=== PATIENT | female | born 1990 | race Caucasian/White ===

== ENCOUNTER 2022-07-11 10:07 | Day surgery (SDC) | payer MEDICAID ==
[2022-07-11] MEDS ORDERED: hydrALAZINE 20 MG/ML VIAL SLOW IVP PRN (10:33)
== END 2022-07-11 10:32 | disposition home or self-care (01) ==
LOC: CSHLD/OP 10:07
PROVIDERS: ATTEND Obstetrics & Gynecology
DX: O47.1 False labor at or after 37 completed weeks of gestation (principal); O99.513 Diseases of the respiratory system complicating pregnancy, third trimester; J45.909 Unspecified asthma, uncomplicated; Z3A.37 37 weeks gestation of pregnancy
CPT/HCPCS: 99282

== ENCOUNTER 2022-07-29 19:30 | Inpatient (IN) | payer MEDICAID, OTHER ==
[2022-07-30] MEDS ORDERED: Ibuprofen 800 MG TAB PO PRN (04:38)
[2022-07-30] MEDS ORDERED: HYDROcodone/Acetaminophen 5/325 mg Tablet PO PRN ×3 (04:38→22:10)
[2022-07-30] MEDS ORDERED: Misoprostol 200 MCG TAB PR PRN (04:38)
[2022-07-30] MEDS ORDERED: Carboprost 250 MCG/ML AMP IM PRN (04:38)
[2022-07-30] MEDS ORDERED: Ondansetron PF 4 MG/2 ML Vial IVP PRN ×2 (04:38→18:31)
[2022-07-30] MEDS ORDERED: Methylergonovine 0.2 MG/ML VIAL IM PRN (04:38)
[2022-07-30] MEDS ORDERED: Diphenoxylate HCl/Atropine Tablet PO PRN ×2 (04:38)
[2022-07-30] MEDS ORDERED: hydrALAZINE 20 MG/ML VIAL SLOW IVP PRN ×2 (04:38→22:10)
[2022-07-30] MEDS ORDERED: Lidocaine 1% (PF) 30 ML VIAL SC PRN (04:38)
[2022-07-30] MEDS ORDERED: Promethazine HCl 25 MG/ML VIAL IM PRN ×2 (04:38→18:31)
[2022-07-30] MEDS ORDERED: NS w/ Oxytocin 30 units 500 ML IV SCH ×3 (04:45→22:10)
[2022-07-30] MEDS: Misoprostol 100 MCG TAB VAG SCH ×4 (04:49→16:21)
[2022-07-30] MEDS: Lactated Ringer's 1,000 ML IV SCH (04:49)
[2022-07-30] MEDS ORDERED: Misoprostol 100 MCG TAB ONE (04:52)
[2022-07-30 05:09] LABS: Hemoglobin 12.9 g/dL (12.0-15.5); Mean Corpuscular HGB CONC 35.6 g/dL (32.0-36.0); Mean Corpuscular Hemoglobin 29.5 pg (27.0-33.0); Mean Corpuscular Volume 82.6 fl (81.6-98.3); Mean Platelet Volume 11.1 fl (7.4-10.4); Platelet Count 211 10x3/uL (150-450); RBC Distribution Width 13.4 % (11.5-14.5); Red Blood Cell (RBC) Count 4.38 10x6/uL (3.90-5.03); White Blood Cell (WBC) Count 9.3 10x3/uL (3.5-10.5)
[2022-07-30 05:17] LABS: HBSAg Index 0.19 S/CO (0-0.99); Hep B Surf Ag Non-Reactive S/CO (NonReactive); Syphilis Antibody Nonreactive (Nonreactive); Syphilis Antibody Index 0.03 S/CO (<1.00 Non-Reactive)
[2022-07-30 06:18] VITALS: BMI 57.6
[2022-07-30] MEDS ORDERED: Penicillin G Potassium 5 MILL.UNITS VIAL ONE (06:28)
[2022-07-30] MEDS ORDERED: Penicillin G Potassium 5 MILL.UNITS in Sodium Chloride 0.9% 100 ML IVPB SCH (07:15)
[2022-07-30] MEDS: Pen G 2.5 MILL.UNITS/50 ML BAG IVPB SCH ×3 (10:38→19:14)
[2022-07-30] MEDS ORDERED: Fentanyl 2 mcg/Bup 0.1% Cadd 100 ML ONE (16:30)
[2022-07-30] MEDS ORDERED: Moisturizing Cream (Eucerin) 113 GM JAR TOP PRN (18:31)
[2022-07-30] MEDS ORDERED: Acetaminophen 325 MG TAB PO PRN (18:31)
[2022-07-30] MEDS ORDERED: Naloxone HCl 0.4 mg/ml Vial IVP PRN ×2 (18:31)
[2022-07-30] MEDS ORDERED: ePHEDrine Sulfate 50 MG/10 ML VIAL SLOW IVP PRN (18:31)
[2022-07-30] MEDS ORDERED: diphenhydrAMINE 50 MG/ML VIAL IVP PRN (18:31)
[2022-07-30] MEDS ORDERED: Fentanyl 2 mcg/Bupivacaine 0.1% Cassette 100 ML EPIDURAL SCH (18:45)
[2022-07-30] MEDS ORDERED: Communication Order-Pharmacy FS SCH (18:45)
[2022-07-30] MEDS ORDERED: Lactated Ringer's 500 ML IV PRN (19:00)
[2022-07-30] MEDS ORDERED: NS w/ Oxytocin 30 units 500 ML ONE (20:17)
[2022-07-30] MEDS ORDERED: Lidocaine 1% (PF) 30 ML VIAL ONE (20:17)
[2022-07-30] MEDS ORDERED: Misoprostol 200 MCG TAB VAG PRN (22:10)
[2022-07-30] MEDS ORDERED: Bisacodyl 10 MG SUPP PR PRN (22:10)
[2022-07-30] MEDS ORDERED: Boostrix 0.5 ML (Tdap) VIAL (>/=7 yrs of age) IM ONE (22:10)
[2022-07-30] MEDS ORDERED: Zolpidem Tartrate 5 MG TAB PO PRN (22:10)
[2022-07-30] MEDS ORDERED: Milk Of Magnesia 30 ML UDCUP PO PRN (22:10)
[2022-07-30] MEDS ORDERED: Benzocaine-Menthol 82.5 ML CAN TOP PRN (22:10)
[2022-07-31] MEDS: Lactated Ringer's 1,000 ML IV SCH (00:44)
[2022-07-31] MEDS: Misoprostol 100 MCG TAB VAG SCH (00:44)
[2022-07-31] MEDS: Docusate 100 MG CAP PO SCH ×3 (00:45→21:31)
[2022-07-31] MEDS: Ibuprofen 800 MG TAB PO SCH ×4 (00:45→21:31)
[2022-07-31] MEDS: Ferrous Sulfate 325 MG TAB PO SCH (09:09)
[2022-07-31] MEDS: Prenatal Vitamin 1 TAB PO SCH (09:10)
[2022-08-01] MEDS: HYDROcodone/Acetaminophen 5/325 mg Tablet PO PRN ×3 (03:06→12:40)
[2022-08-01] MEDS: Ferrous Sulfate 325 MG TAB PO SCH (03:46)
[2022-08-01] MEDS: Ibuprofen 800 MG TAB PO SCH ×2 (05:48→13:50)
[2022-08-01] MEDS: Prenatal Vitamin 1 TAB PO SCH (08:29)
[2022-08-01] MEDS: Docusate 100 MG CAP PO SCH (08:29)
[2022-08-01 10:36] VITALS: BP 111/55; TEMP 98
== END 2022-08-01 14:15 | disposition home or self-care (01) | DRG 807 ==
LOC: CSHLD 07-30 02:24 → CSHPP 07-30 22:53
PROVIDERS: ADMIT Obstetrics & Gynecology; ATTEND Obstetrics & Gynecology
PROC: 10E0XZZ Delivery of Products of Conception, External Approach (ICD-10-PCS; principal; 2022-07-30)
DX: O99.214 Obesity complicating childbirth (principal); Z37.0 Single live birth; E66.01 Morbid (severe) obesity due to excess calories; Z79.899 Other long term (current) drug therapy; Z90.89 Acquired absence of other organs; O99.824 Streptococcus B carrier state complicating childbirth; Z3A.40 40 weeks gestation of pregnancy
CPT/HCPCS: 36415; 51702; 85027; 86780; 86850; 86900; 86901; 87340; J0595; J2405; J2540; J2590; J7120

== ENCOUNTER 2022-09-22 09:58 | Day surgery (SDC) | payer OTHER ==
[2022-09-17 16:33] LABS: Mean Corpuscular HGB CONC 35.1 g/dL (32.0-36.0); Mean Corpuscular Volume 82.6 fl (81.6-98.3); Mean Platelet Volume 9.8 fl (7.4-10.4); Platelet Count 237 10x3/uL (150-450); RBC Distribution Width 12.2 % (11.5-14.5); Red Blood Cell (RBC) Count 4.83 10x6/uL (3.90-5.03); White Blood Cell (WBC) Count 8.6 10x3/uL (3.5-10.5)
[2022-09-17 16:38] LABS: BHCG - Serum Negative (NEGATIVE); Pregs Control Background? CLEAR/WHITE (CLR/WHITE); Pregs Control Bar Appear? YES (CONTROL BAR)
[2022-09-21 09:02] VITALS: BMI 52.7
[2022-09-22] MEDS ORDERED: Gabapentin 300 MG CAP ONE (10:24)
[2022-09-22] MEDS ORDERED: CeleCOXIB 100 MG CAP ONE (10:24)
[2022-09-22] MEDS ORDERED: Famotidine/PF 20 mg/2ml Vial ONE (10:25)
[2022-09-22] MEDS ORDERED: Lidocaine 1% MPF 2 ML VIAL ONE (10:25)
[2022-09-22] MEDS ORDERED: EPINEPHrine 1 MG/ML AMP ONE (12:17)
[2022-09-22] MEDS ORDERED: Bupivacaine PF 0.5% 30 ML VIAL ONE (12:17)
[2022-09-22] MEDS ORDERED: CEFAZOLIN 2 GM VIAL ONE (12:32)
[2022-09-22] MEDS ORDERED: Rocuronium Bromide 10 MG/ML (10ML VIAL) ONE ×2 (12:33→12:36)
[2022-09-22] MEDS ORDERED: Fentanyl 100 MCG/2 ML VIAL ONE ×2 (12:33)
[2022-09-22] MEDS ORDERED: PROPOFOL 20 ML ONE (12:33)
[2022-09-22] MEDS ORDERED: Lidocaine 2% PF 5 ML VIAL ONE (12:33)
[2022-09-22] MEDS ORDERED: Dexamethasone 4 mg/ml Vial ONE (12:36)
[2022-09-22] MEDS ORDERED: Ondansetron PF 4 MG/2 ML Vial ONE (12:36)
[2022-09-22] MEDS ORDERED: Glycopyrrolate 0.2 MG/ML 5 ML SYRINGE ONE (13:06)
[2022-09-22] MEDS ORDERED: Ketorolac Tromethamine 30 MG/ML VIAL ONE (13:07)
== END 2022-09-22 16:35 | disposition home or self-care (01) ==
LOC: CSHSDC 09:58
PROVIDERS: ATTEND Obstetrics & Gynecology
PROC: 0UT74ZZ Resection of Bilateral Fallopian Tubes, Percutaneous Endoscopic Approach (ICD-10-PCS; principal; 2022-09-22)
DX: N83.8 Other noninflammatory disorders of ovary, fallopian tube and broad ligament (principal); Z15.01 Genetic susceptibility to malignant neoplasm of breast; I10 Essential (primary) hypertension; E66.01 Morbid (severe) obesity due to excess calories; Z68.43 Body mass index [BMI] 50.0-59.9, adult; Z80.3 Family history of malignant neoplasm of breast
CPT/HCPCS: 84703; 85027; 86850; 86900; 86901; 88302; J0171; J1100; J1885; J2001; J2405; J2704; J3010; S0020; S0028